=== PATIENT | male | born 1970 | race Caucasian/White ===

== ENCOUNTER 2024-04-24 19:10 | Inpatient (IN) | payer OTHER ==
[~2024-04-24] VITALS: Ht 177.8 cm; Wt 90.7 kg
[2024-04-24 20:37] LABS: COVID AG,FIA SOURCE NPH
[2024-04-24 20:40] LABS: BASOPHILS % (AUTO) 1.2 % (0.0-2.0); EOSINOPHILS % (AUTO) 3.4 % (1.0-6.0); HEMATOCRIT 45.3 % (41-53); HEMOGLOBIN 15.5 g/dL (13.5-17.5); LYMPHOCYTES # (AUTO) 3.4 K/uL (1.0-4.8); MEAN CORPUSCULAR HEMOGLOBIN 30.6 pg (26.0-34.0); MEAN CORPUSCULAR HGB CONC 34.3 G/dL (31.0-37.0); MEAN CORPUSCULAR VOLUME 89 fL (80-100); MONOCYTES # (AUTO) 0.6 K/uL (0.1-1.0); MONOCYTES % (AUTO) 5.2 % (2.0-9.0); NEUTROPHILS # (AUTO) 6.7 K/uL (1.8-7.7); NEUTROPHILS % (AUTO) 60.2 % (40.0-70.0); PLATELET COUNT (AUTO) 251 K/uL (150-450); RED BLOOD CELL COUNT(AUTO) 5.07 MIL/uL (4.50-5.90); RED CELL DISTRIBUTION WIDTH 13.8 % (11.5-14.5); WHITE BLOOD COUNT (AUTO) 11.2 K/uL (4.5-11.0)
[2024-04-24 20:55] LABS: ALCOHOL, BLOOD (SERUM) < 3 mg/dL (0-10); ANION GAP 7 mmol/L (8-16); CALCIUM, TOTAL 8.7 mg/dL (8.8-10.5); CARBON DIOXIDE 29 mmol/L (22-29); CHLORIDE 103 mmol/L (98-107); CREATININE 0.56 mg/dL (0.60-1.30); GLOMERULAR FILTR. RATE CALC > 60 mL/min (>60); GLUCOSE,RANDOM 93 mg/dL (70-110); POTASSIUM 3.5 mmol/L (3.5-5.1); SODIUM SERUM 139 mmol/L (136-145); UREA NITROGEN, BLOOD 11 mg/dL (7-18)
[2024-04-24 21:05] LABS: SARS-COV2 (COVID) ANTIGEN,FIA Negative (Negative)
[2024-04-24] MEDS ORDERED: ATOR-2 PO (21:06)
[2024-04-24] MEDS ORDERED: METF-81 PO (21:06)
[2024-04-24] MEDS ORDERED: RIVA20TA PO (21:06)
[2024-04-24] MEDS ORDERED: HYDR-4069 PO (21:06)
[2024-04-24] MEDS ORDERED: ASPI-1444 PO (21:06)
[2024-04-24] MEDS ORDERED: LEVE-71 PO (21:06)
[2024-04-24] MEDS ORDERED: TAMS0.4C94 PO (21:06)
[2024-04-24] MEDS ORDERED: ACETAMINOPHEN 325 MG TABLET PO PRN (22:00)
[2024-04-24] MEDS ORDERED: LORazepam 2 MG TABLET PO PRN (22:00)
[2024-04-24] MEDS ORDERED: MAG HYDROX/ALUMINUM HYD/SIMETH ES 30 ML SUSPENSION UDCUP PO PRN (22:00)
[2024-04-24] MEDS ORDERED: LOPERAMIDE HCL 2 MG CAPSULE PO PRN (22:00)
[2024-04-24] MEDS ORDERED: MAGNESIUM HYDROXIDE SUSPENSION 30 ML UDCUP PO PRN (22:00)
[2024-04-24] MEDS ORDERED: HALOPERIDOL 5 MG TABLET PO PRN (22:00)
[2024-04-24] MEDS: HYDROCODONE/ACETAMINOPHEN 5-325 MG TABLET PO ONE (22:56)
[2024-04-25 08:00] VITALS: O2SAT 98
[2024-04-25 10:14] VITALS: BP 126/67; PULSE 84; RESP 18; TEMP 97.1; O2SAT 98
[2024-04-25] MEDS ORDERED: LOPERAMIDE HCL 2 MG CAPSULE PO PRN (14:45)
[2024-04-25] MEDS ORDERED: CloNIDine HCL 0.1 MG TABLET PO PRN (14:45)
[2024-04-25] MEDS ORDERED: MAGNESIUM HYDROXIDE SUSPENSION 30 ML UDCUP PO PRN (14:45)
[2024-04-25] MEDS ORDERED: ALBUTEROL SULFATE HFA 90 MCG/PUFF 8 GM INHALER IH PRN (14:45)
[2024-04-25] MEDS ORDERED: PETROLATUM,WHITE 28 GM JELLY TP PRN (14:45)
[2024-04-25] MEDS ORDERED: NICOTINE 14 MG/24 HOUR PATCH TD PRN (14:45)
[2024-04-25] MEDS ORDERED: DOCUSATE SODIUM 100 MG CAPSULE PO PRN (14:45)
[2024-04-25] MEDS: MetFORMIN HCL 500 MG ER TABLET PO SCH (16:59)
[2024-04-25] MEDS: INFLUENZA VIRUS VACCINE TVS (6MO+) 2024-25/PF 45 MCG/0.5 ML SYRINGE IM. ONE (16:59)
[2024-04-25] MEDS: LevETIRAcetam 500 MG TABLET PO SCH (16:59)
[2024-04-25] MEDS: RIVAROXABAN 20 MG TABLET PO SCH (16:59)
[2024-04-25 20:16] VITALS: BP 124/69; PULSE 73; RESP 18; TEMP 97.2; O2SAT 97
[2024-04-25 22:16] VITALS: RESP 17
[2024-04-25] MEDS: TraMADol HCL 50 MG TABLET PO PRN (22:16)
[2024-04-25 23:09] VITALS: RESP 16
[2024-04-26 08:01] VITALS: RESP 18
[2024-04-26] MEDS: ATORVASTATIN CALCIUM 40 MG TABLET PO SCH (09:06)
[2024-04-26] MEDS: ASPIRIN 81 MG DR TABLET PO SCH (09:07)
[2024-04-26] MEDS: TAMSULOSIN HCL 0.4 MG CAPSULE PO SCH (09:07)
[2024-04-26] MEDS: ESCITALOPRAM OXALATE 10 MG TABLET PO SCH (09:07)
[2024-04-26 09:49] LABS: CHOL/HDL RATIO 1.8 (4.2-7.3); THYROID STIMULATING HORMONE 1.35 uIU/mL (0.36-3.74)
[2024-04-26 14:54] VITALS: RESP 18
[2024-04-26 15:54] VITALS: RESP 17
[2024-04-26] MEDS: ZOLPIDEM TARTRATE 10 MG TABLET PO PRN (20:42)
[2024-04-26] MEDS ORDERED: GLUCAGON,HUMAN RECOMBINANT 1 MG VIAL IM PRN (20:45)
[2024-04-26 21:11] VITALS: BP 131/81; PULSE 83; RESP 18; TEMP 97; O2SAT 96
[2024-04-26] MEDS: INSULIN LISPRO 100 UNITS/ML SQ PRN (21:12)
[2024-04-26 21:42] VITALS: RESP 18; O2SAT 96
[2024-04-26 22:21] LABS: GLUCOMETER DEV NAME(LOC) BV2S.; GLUCOSE,POINT OF CARE 145 MG/DL (70-110)
[2024-04-27 10:25] LABS: GLUCOMETER DEV NAME(LOC) BV2S.; GLUCOSE,POINT OF CARE 117 MG/DL (70-110)
[2024-04-27 11:45] VITALS: BP 122/80; PULSE 82; RESP 18; TEMP 97.8; O2SAT 98
[2024-04-27 17:00] LABS: GLUCOMETER DEV NAME(LOC) BV2S.; GLUCOSE,POINT OF CARE 118 MG/DL (70-110)
[2024-04-27] MEDS ORDERED: ESCI-8 PO (19:43)
[2024-04-27 21:14] VITALS: BP 135/84; PULSE 88; RESP 16; TEMP 96.8; O2SAT 97
[2024-04-27] MEDS: IBUPROFEN 400 MG TABLET PO PRN (21:20)
[2024-04-27 21:50] LABS: GLUCOMETER DEV NAME(LOC) BV2S.; GLUCOSE,POINT OF CARE 148 MG/DL (70-110)
[2024-04-27] MEDS: GuaiFENesin/D-METHORPHAN [SUGAR-FREE] 200-20MG/10 ML SYRUP UDCUP PO PRN (21:57)
[2024-04-28 06:35] LABS: GLUCOMETER DEV NAME(LOC) BV2S.; GLUCOSE,POINT OF CARE 155 MG/DL (70-110)
[2024-04-28 08:00] VITALS: BP 132/80; PULSE 77; RESP 16; TEMP 96.8; TEMP 97; O2SAT 97
[2024-04-28] MEDS: MAG HYDROX/ALUMINUM HYD/SIMETH ES 30 ML SUSPENSION UDCUP PO PRN (08:50)
[2024-04-28] MEDS: CEPHALEXIN MONOHYDRATE 500 MG CAPSULE PO SCH (17:17)
[2024-04-28 17:20] LABS: GLUCOMETER DEV NAME(LOC) BV2S.; GLUCOSE,POINT OF CARE 150 MG/DL (70-110)
[2024-04-28 17:20] LABS: GLUCOMETER DEV NAME(LOC) BV2S.; GLUCOSE,POINT OF CARE 147 MG/DL (70-110)
[2024-04-28] MEDS: SULFAMETHOX/TRIMETH DS 800-160 MG/TABLET PO SCH (17:39)
[2024-04-28 18:21] VITALS: RESP 18
[2024-04-28 19:12] VITALS: RESP 18
[2024-04-28 21:11] LABS: GLUCOMETER DEV NAME(LOC) BV2S.; GLUCOSE,POINT OF CARE 175 MG/DL (70-110)
[2024-04-28 21:12] VITALS: BP 121/74; PULSE 61; RESP 18; TEMP 97.2
[2024-04-28] MEDS ORDERED: CHLORHEXIDINE GLUCONATE 2% TOWELETTE [2'S/6'S] TP SCH (22:00)
[2024-04-29 08:14] VITALS: BP 128/64; PULSE 91; RESP 16; TEMP 98; O2SAT 99
[2024-04-29 12:01] LABS: GLUCOMETER DEV NAME(LOC) BV2S.; GLUCOSE,POINT OF CARE 122 MG/DL (70-110)
[2024-04-29 12:01] LABS: GLUCOMETER DEV NAME(LOC) BV2S.; GLUCOSE,POINT OF CARE 143 MG/DL (70-110)
[2024-04-29 17:21] LABS: GLUCOMETER DEV NAME(LOC) BV2S.; GLUCOSE,POINT OF CARE 145 MG/DL (70-110)
[2024-04-29 19:41] VITALS: BP 121/69; PULSE 89; RESP 17; O2SAT 99
[2024-04-29 20:41] VITALS: PULSE 78; RESP 16; TEMP 97.9
[2024-04-29 20:51] LABS: GLUCOMETER DEV NAME(LOC) BV2S.; GLUCOSE,POINT OF CARE 116 MG/DL (70-110)
[2024-04-29 22:23] VITALS: BP 106/68; PULSE 100; RESP 17
[2024-04-30 06:35] LABS: GLUCOMETER DEV NAME(LOC) BV2S.; GLUCOSE,POINT OF CARE 99 MG/DL (70-110)
[2024-04-30 08:08] VITALS: BP 109/73; PULSE 62; RESP 18; TEMP 98; O2SAT 98
[2024-04-30 09:05] VITALS: RESP 19; O2SAT 99
[2024-04-30] MEDS: ACETAMINOPHEN 325 MG TABLET PO PRN (09:05)
[2024-04-30] MEDS: ETHYL ALCOHOL 62% ANTISEPTIC NASAL SANITIZER 0.6 ML AMPUL NASAL SCH (10:51)
[2024-04-30 16:56] LABS: GLUCOMETER DEV NAME(LOC) BV2S.; GLUCOSE,POINT OF CARE 111 MG/DL (70-110)
[2024-04-30 16:56] LABS: GLUCOMETER DEV NAME(LOC) BV2S.; GLUCOSE,POINT OF CARE 118 MG/DL (70-110)
[2024-04-30 20:09] VITALS: BP 105/70; PULSE 109; RESP 16; TEMP 97.5; O2SAT 99
[2024-04-30 20:18] VITALS: RESP 17
[2024-04-30 21:18] VITALS: RESP 16
[2024-04-30] MEDS: CHLORHEXIDINE GLUCONATE 2% TOWELETTE [2'S/6'S] TP SCH (21:35)
[2024-04-30 23:40] VITALS: BP 107/80; PULSE 103; RESP 16; TEMP 97.6
[2024-05-01 00:36] LABS: GLUCOMETER DEV NAME(LOC) BV2S.; GLUCOSE,POINT OF CARE 129 MG/DL (70-110)
[2024-05-01] MEDS: ONDANSETRON 4 MG TABLET PO PRN (05:44)
[2024-05-01 06:51] LABS: GLUCOMETER DEV NAME(LOC) BV2S.; GLUCOSE,POINT OF CARE 121 MG/DL (70-110)
[2024-05-01 08:55] VITALS: BP 112/70; PULSE 100; RESP 19; TEMP 96.9
[2024-05-01 13:21] LABS: GLUCOMETER DEV NAME(LOC) BV2S.; GLUCOSE,POINT OF CARE 147 MG/DL (70-110)
[2024-05-01 14:22] VITALS: BP 118/71; RESP 18
[2024-05-01 15:27] VITALS: RESP 17
[2024-05-01 20:34] VITALS: BP 132/76; PULSE 105; RESP 18; TEMP 97.5; O2SAT 96
[2024-05-01 21:06] LABS: GLUCOMETER DEV NAME(LOC) BV2S.; GLUCOSE,POINT OF CARE 116 MG/DL (70-110)
[2024-05-02 04:12] VITALS: BP 125/84; PULSE 104
[2024-05-02 05:56] LABS: GLUCOMETER DEV NAME(LOC) BV2S.; GLUCOSE,POINT OF CARE 105 MG/DL (70-110)
[2024-05-02 08:19] VITALS: BP 107/74; PULSE 94; RESP 17; TEMP 97; O2SAT 97
[2024-05-02 12:21] LABS: GLUCOMETER DEV NAME(LOC) BV2S.; GLUCOSE,POINT OF CARE 111 MG/DL (70-110)
== END 2024-05-02 13:10 | disposition home or self-care (01) | DRG 885 ==
LOC: EMS 19:10 → B2S 04-25 03:04
PROVIDERS: ADMIT Psychiatry & Neurology Psychiatry; ATTEND Psychiatry & Neurology Psychiatry
PROC: GZHZZZZ Group Psychotherapy (ICD-10-PCS; principal; 2024-04-26)
PROC: GZ52ZZZ Individual Psychotherapy, Cognitive (ICD-10-PCS; 2024-04-26)
PROC: GZ56ZZZ Individual Psychotherapy, Supportive (ICD-10-PCS; 2024-04-26)
DX: F33.2 Major depressive disorder, recurrent severe without psychotic features (principal); R45.851 Suicidal ideations; I10 Essential (primary) hypertension; Z20.822 Contact with and (suspected) exposure to COVID-19; E78.5 Hyperlipidemia, unspecified; N40.0 Benign prostatic hyperplasia without lower urinary tract symptoms; G40.909 Epilepsy, unspecified, not intractable, without status epilepticus; E11.9 Type 2 diabetes mellitus without complications; F22 Delusional disorders; F41.9 Anxiety disorder, unspecified; Z87.891 Personal history of nicotine dependence
CPT/HCPCS: 80048; 80061; 82962; 83036; 84443; 85025; 87081; 99285; G0480; Q0162